=== PATIENT | male | born 1990 | race Caucasian/White ===

== ENCOUNTER 2018-09-16 14:44 | Emergency (ER) | payer OTHER, MEDICAID, SELFPAY ==
[2018-09-16 14:48] VITALS: BP 107/73; PULSE 112; RESP 16; TEMP 37; O2SAT 100
--- NOTE | 2018-09-16 14:55 | DI.RAD.S_ITS ---
PROCEDURE: XR CHEST 2V INDICATIONS: SOB with excertion, congestion TECHNIQUE: 2 views of the chest were acquired. COMPARISON: None. FINDINGS: Surgical changes and devices: None. Lungs and pleura: Lungs are clear. No pleural effusions or pneumothorax. Mediastinum: Mediastinal contours are normal. Heart size is normal. Bones and chest wall: No suspicious bony abnormalities. Soft tissues appear unremarkable. IMPRESSION: No acute disease. Dictated by: Jacky Mustafa M.D. on 09/16/2018 at 15:50 Approved by: Jacky Mustafa M.D. on 09/16/2018 at 15:52
[2018-09-16 15:33] VITALS: BP 115/81; PULSE 96; RESP 13; O2SAT 100
[2018-09-16 16:00] VITALS: BP 108/78; PULSE 99; RESP 25; O2SAT 100
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
[2018-09-16 17:06] LABS: Add Manual Diff / Slide Review NO; Basophils Absolute Auto 100 /uL (0-100); Basophils Percent Auto 0.7 % (0-2); Eosinophils Absolute Auto 300 /uL (0-450); Eosinophils Percent Auto 1.6 % (2-4); Hematocrit 42.2 % (41-53); Lymphocytes Absolute Auto 3700 /uL (1100-4500); Lymphocytes Percent Auto 23.6 % (25-40); Mean Corpuscular HGB Conc 33.3 % (30-36); Mean Corpuscular Hemoglobin 29.2 PG (26-34); Mean Corpuscular Volume 87.7 fL (80-100); Monocytes Absolute Auto 1300 /uL (0-900); Neutrophils Absolute Auto 10500 /uL (1500-7000); Neutrophils Percent Auto 66.1 % (50-75); Platelet Count 362 X10^3/uL (150-400); Red Blood Cell Count 4.81 X10^6/uL (4.5-5.9); Red Cell Distribution Width 14.3 % (11.6-14.8); White Blood Cell Count 15.8 X10^3/uL (4.5-11.0)
[2018-09-16 17:16] LABS: Alanine Aminotransferase 168 IU/L (21-72); Albumin 4.2 g/dL (3.5-5.0); Albumin Globulin Ratio 1.5 (1.0-2.8); Alkaline Phosphatase 75 U/L (38-126); Aspartate Aminotransferase 40 IU/L (17-59); BUN Creatinine Ratio 23.8 (6-22); Bilirubin Total 0.3 mg/dL (0.2-1.3); Blood Urea Nitrogen 19 mg/dL (9-20); Calcium 9.3 mg/dL (8.4-10.2); Carbon Dioxide 30 mmol/L (22-32); Chloride 99 mmol/L (98-107); Creatine Kinase 42 U/L (55-170); D Dimer < 200 ng/mL (<230); Estimated Glomerular Filt Rate > 60.0 mL/min (>60); Globulin 2.8 g/dL (1.7-4.1); Glucose 98 mg/dL (70-100); HEMOLYSIS < 15 (0-50); Potassium 4.4 mmol/L (3.4-5.1); Sodium 139 mmol/L (137-145)
[2018-09-16 17:28] LABS: Troponin I < 0.012 ng/mL (0.01-0.034)
[2018-09-16 17:30] VITALS: BP 112/68; PULSE 92; RESP 14; O2SAT 99
[2018-09-16 17:36] LABS: Urine Amphetamines Positive (Negative); Urine Barbiturates Negative (Negative); Urine Benzodiazepines Negative (Negative); Urine Cocaine Negative (Negative); Urine MDMA Negative (Negative); Urine Methadone Negative (Negative); Urine Methamphetamines Negative (Negative); Urine Morphine/Opi cutoff 2000 Negative (Negative); Urine Oxycodone Negative (Negative); Urine Phencyclidine Negative (Negative); Urine Tetrahydrocannabinol Positive (Negative); Urine Tricyclic Antidepressant Negative (Negative)
[2018-09-16 18:05] LABS: Thyroid Stimulating Hormone 0.89 uIU/mL (0.47-4.68)
[2018-09-16 18:30] VITALS: BP 116/74; PULSE 103; PULSE 106; RESP 13; RESP 24; O2SAT 100
== END 2018-09-16 18:39 | disposition home or self-care (01) ==
PROVIDERS: Emergency Provider Emergency Medicine
DX: D72.829 Elevated white blood cell count, unspecified (principal); R53.83 Other fatigue
CPT/HCPCS: 36415; 71046; 80053; 80305; 81003; 82550; 84443; 84484; 85025; 85379; 93005; 93041; 99283; 99285

== ENCOUNTER 2021-01-21 16:43 | Emergency (ER) | payer OTHER, MEDICAID, SELFPAY ==
[2021-01-21 16:50] VITALS: BP 142/78; PULSE 85; RESP 18; TEMP 37.1; O2SAT 98; BMI 25.0
--- NOTE | 2021-01-21 17:05 | DI.RAD.S_ITS ---
PROCEDURE: XR CHEST 1V INDICATIONS: Chest pain TECHNIQUE: One view of the chest was acquired. COMPARISON: None. FINDINGS: Surgical changes and devices: None. Lungs and pleura: Lungs are clear. No pleural effusions or pneumothorax. Mediastinum: Mediastinal contours appear normal. Heart size is normal. Bones and chest wall: No suspicious bony lesions. Overlying soft tissues appear unremarkable. IMPRESSION: No acute cardiopulmonary process demonstrated radiographically. Dictated by: Gael Queen M.D. on 01/21/2021 at 17:51 Approved by: Gael Queen M.D. on 01/21/2021 at 17:52
[2021-01-21] MEDS: SODIUM CHLORIDE 0.9% 1,000 ML 1000 ML IV (17:06)
[2021-01-21] MEDS: ONDANSETRON 4 MG/2 ML INJ IV (17:06)
[2021-01-21 17:15] VITALS: BP 120/73; PULSE 88; RESP 18; O2SAT 100
--- NOTE | 2021-01-21 17:20 | ED.CHESTPAIN ---
HPI - Chest Pain General Chief Complaint: Chest Pain Stated Complaint: chest pains/nausea/light headed Time Seen by Provider: 01/21/21 17:04 Source: patient Mode of arrival: Ambulatory Limitations: no limitations History of Present Illness HPI narrative: Patient is a 30-year-old male. Does have a history of drug abuse. Is currently on methadone. Denies any alcohol. States he has not had any changes his methadone recently. Denies any additional illicit drug use is here for evaluation of approximately 24 hours of chest discomfort some anxiety, chills, shortness of breath and nausea and vomiting. Has not tried anything for his symptoms prior to arrival. No fevers. Related Data Previous Rx's Medication Instructions Recorded ondansetron HCl 4 mg tablet 4 mg PO Q6H PRN #14 tab 01/21/21 (Zofran) Allergies Allergy/AdvReac Type Severity Reaction Status Date / Time No Known Drug Allergies Allergy Verified 09/16/18 14:53 Review of Systems Constitutional Constitutional: Reports chills and Denies fever(s) Eyes Eyes: Reports system reviewed and no additional complaints, except as documented ENT Ears, Nose, Mouth, and Throat: Reports system reviewed and no additional complaints, except as documented Cardiovascular Cardiovascular: Reports as per HPI Respiratory Respiratory: Reports as per HPI Gastrointestinal Gastrointestinal: Reports as per HPI Genitourinary Genitourinary: Reports system reviewed and no additional complaints, except as documented Musculoskeletal Musculoskeletal: Reports system reviewed and no additional complaints, except as documented Integumentary/Breasts Skin/Breast: Reports system reviewed and no additional complaints, except as documented Neurologic Neurologic: Reports system reviewed and no additional complaints, except as documented Psychiatric Psychiatric: Reports anxiety Hematologic/Lymphatic On Anticoagulants: No Allergic/Immunologic Allergic/Immunologic: Reports system reviewed and no additional complaints, except as documented Patient History Medical History Drug abuse Kidney stone Surgical History (Updated 09/16/18 @ 16:45 by Cheri Stratton DO) H/O bilateral inguinal hernia repair History of tonsillectomy Social History marital status: Smoking Status: Current every day smoker alcohol intake: current substance use type: former substance user Smoking Status: Current every day smoker tobacco type: e-cigarettes and vaping alcohol intake frequency: holidays/special occasions only Substance Use Type: marijuana Exam Initial Vital Signs Initial Vital Signs: Vital Signs Temperature 98.8 F 01/21/21 16:50 Pulse Rate 85 01/21/21 16:50 Respiratory Rate 18 01/21/21 16:50 Blood Pressure 142/78 H 01/21/21 16:50 Pulse Oximetry 98 01/21/21 16:50 Const General: cooperative, comfortable and diaphoretic HENMT Head: normal to inspection and normocephalic Eyes General: appearance normal, both eyes and all related structures Resp Effort & Inspection: normal respiratory effort Auscultation: clear to auscultation bilaterally Cardio Rate: regular rate Rhythm: regular rhythm GI Inspection: normal to inspection Skin General: no rashes or lesions noted Neuro General: patient alert, patient awake and moves all extremities Extrem General: normal to inspection and capillary refill normal Psych Appearance: grossly normal and well kempt Course Orders Ordered: ED Orders 01/21/21 16:58 COVID19 -Nasal swab/Pre-Proc Stat Complete Blood Count AUTO DIFF Stat Comprehensive Metabolic Panel Stat Ethanol (ETOH) Stat Lipase Stat Troponin & CK Cardiac Panel Stat 01/21/21 17:05 XR chest 1V Stat EKG-12 Lead Stat Discontinued Medications Sodium Chloride (Normal Saline 0.9%) 1,000 mls @ 1,000 mls/hr IV BOLUS ONE Stop: 01/21/21 18:05 Last Infusion: 01/21/21 18:10 Dose: 0 mls/hr Documented by: Admin: 01/21/21 17:06 Dose: 1,000 mls/hr Documented by: NASH Lorazepam (Lorazepam 0.5 Mg Tablet) 1 mg PO NOW ONE Stop: 01/21/21 17:24 Last Admin: 01/21/21 17:30 Dose: 1 mg Documented by: NASH Ondansetron HCl (Ondansetron 4 Mg/2 Ml Inj) 4 mg IV NOW ONE Stop: 01/21/21 17:07 Last Admin: 01/21/21 17:06 Dose: 4 mg Documented by: NASH Vital Signs Vital signs: Vital Signs - 8 hr 01/21/21 16:50 01/21/21 17:15 01/21/21 17:51 Temperature 98.8 F Pulse Rate 85 88 70 Respiratory Rate 18 18 18 Blood Pressure 142/78 H 120/73 127/72 Pulse Oximetry 98 100 96 MDM - Chest Pain Lab Data Attestation: I reviewed the patient's lab results. Result diagrams: 01/21/21 16:58 01/21/21 16:58 Labs: Lab Results 01/21/21 01/21/21 Range/Units 16:58 16:58 WBC 8.8 (4.5-11.0) X10^3/uL RBC 4.81 (4.5-5.9) X10^6/uL Hgb 14.4 (13.5-17.5) g/dL Hct 42.1 (41-53) % MCV 87.6 (80-100) fL MCH 29.9 (26-34) PG MCHC 34.1 (30-36) % RDW 13.1 (11.6-14.8) % Plt Count 263 (150-400) X10^3/uL Neut % (Auto) 64.9 (50-75) % Lymph % (Auto) 27.3 (25-40) % [place] % (Auto) 7.1 (3-14) % Eos % (Auto) 0.1 L (2-4) % Baso % (Auto) 0.6 (0-2) % Neut # (Auto) 5700 (1848-9671) /uL Lymph # (Auto) 2400 (3999-2160) /uL [place] # (Auto) 600 (0-900) /uL Eos # (Auto) 0 (0-450) /uL Baso # (Auto) 100 (0-100) /uL Sodium 140 (137-145) mmol/L Potassium 4.2 (3.4-5.1) mmol/L Chloride 103 (98-107) mmol/L Carbon Dioxide 22 (22-32) mmol/L BUN 17 (9-20) mg/dL Creatinine 0.93 (0.66-1.25) mg/dL Estimated GFR > 60.0 (>60) mL/min BUN/Creatinine Ratio 18.3 (6-22) Glucose 105 H (70-100) mg/dL Calcium 10.9 H (8.4-10.2) mg/dL Total Bilirubin 1.5 H (0.2-1.3) mg/dL AST 42 (17-59) IU/L ALT 20 (<50) IU/L Alkaline Phosphatase 82 (38-126) U/L Total Creatine Kinase 303 H (55-170) U/L CK-MB (CK-2) 1.75 (<2.37) ng/mL CK-MB (CK-2) Rel Index 0.6 L (1.5-5.0) % Troponin I < 0.012 (0.01-0.034) ng/mL Total Protein 9.0 H (6.3-8.2) g/dL Albumin 5.2 H (3.5-5.0) g/dL Globulin 3.8 (1.7-4.1) g/dL Albumin/Globulin Ratio 1.4 (1.0-2.8) Lipase 35 (23-300) U/L Ethyl Alcohol < 10 ( - 10) mg/dL ECG Data Attestation: I personally reviewed and interpreted this ECG as follows: Interpretation: Sinus rhythm Ventricular rate is 70 Normal axis Normal QRS Normal QTC Sinus rhythm No ST T wave changes Discharge Plan Departure Patient Disposition: Home Clinical Impression: Atypical chest pain, Nausea and vomiting Instructions: Nausea and Vomiting-Adult Activity Restrictions/Additional Instructions: Your workup here in the emergency department is very reassuring. Nausea medication was transmitted to [facility] in [place]. Be sure to increase your fluid intake by drinking small amounts of fluid over long periods of time. Return to the emergency department for any new or worsening symptoms Prescriptions: New ondansetron HCl [Zofran] 4 mg tablet 4 mg PO Q6H PRN (Reason: nausea and vomiting) Qty: 14 RF: 0
[2021-01-21 17:26] LABS: Add Manual Diff / Slide Review NO; Basophils Absolute Auto 100 /uL (0-100); Basophils Percent Auto 0.6 % (0-2); Eosinophils Absolute Auto 0 /uL (0-450); Eosinophils Percent Auto 0.1 % (2-4); Hematocrit 42.1 % (41-53); Hemoglobin 14.4 g/dL (13.5-17.5); Lymphocytes Absolute Auto 2400 /uL (1100-4500); Lymphocytes Percent Auto 27.3 % (25-40); Mean Corpuscular HGB Conc 34.1 % (30-36); Mean Corpuscular Hemoglobin 29.9 PG (26-34); Mean Corpuscular Volume 87.6 fL (80-100); Monocytes Absolute Auto 600 /uL (0-900); Monocytes Percent Auto 7.1 % (3-14); Neutrophils Absolute Auto 5700 /uL (1500-7000); Neutrophils Percent Auto 64.9 % (50-75); Platelet Count 263 X10^3/uL (150-400); Red Blood Cell Count 4.81 X10^6/uL (4.5-5.9); Red Cell Distribution Width 13.1 % (11.6-14.8); White Blood Cell Count 8.8 X10^3/uL (4.5-11.0)
[2021-01-21] MEDS: LORazepam 0.5 MG TABLET 1 MG PO (17:30)
[2021-01-21 17:38] LABS: Alanine Aminotransferase 20 IU/L (<50); Albumin 5.2 g/dL (3.5-5.0); Albumin Globulin Ratio 1.4 (1.0-2.8); Alkaline Phosphatase 82 U/L (38-126); Aspartate Aminotransferase 42 IU/L (17-59); BUN Creatinine Ratio 18.3 (6-22); Bilirubin Total 1.5 mg/dL (0.2-1.3); Blood Urea Nitrogen 17 mg/dL (9-20); Calcium 10.9 mg/dL (8.4-10.2); Carbon Dioxide 22 mmol/L (22-32); Chloride 103 mmol/L (98-107); Creatine Kinase 303 U/L (55-170); Estimated Glomerular Filt Rate > 60.0 mL/min (>60); Ethanol (ETOH) < 10 mg/dL; Globulin 3.8 g/dL (1.7-4.1); Glucose 105 mg/dL (70-100); HEMOLYSIS 47 (0-50); Lipase 35 U/L (23-300); Potassium 4.2 mmol/L (3.4-5.1); Sodium 140 mmol/L (137-145)
[2021-01-21 17:49] LABS: Troponin I < 0.012 ng/mL (0.01-0.034)
[2021-01-21 17:51] VITALS: BP 127/72; PULSE 70; RESP 18; O2SAT 96
[2021-01-21 17:52] LABS: CKMB % Relative Index 0.6 % (1.5-5.0); Creatine Kinase MB 1.75 ng/mL (<2.37)
[2021-01-21 18:35] VITALS: BP 130/73; PULSE 80; RESP 18; O2SAT 98
[2021-01-21 18:35] LABS: COVID19 -Nasal RAPID Negative (Negative)
== END 2021-01-21 18:45 | disposition home or self-care (01) ==
PROVIDERS: Emergency Provider Emergency Medicine
DX: R07.89 Other chest pain (principal); R11.2 Nausea with vomiting, unspecified; R06.02 Shortness of breath; F41.9 Anxiety disorder, unspecified
CPT/HCPCS: 36415; 71045; 80053; 80320; 82550; 82553; 83690; 84484; 85025; 87635; 93005; 96361; 96374; 99284; C9803; J2405